=== PATIENT | female | born 1990 | race American Indian/Alaskan Native ===

== ENCOUNTER 2017-08-23 11:39 | Emergency (ER) | payer SELFPAY ==
[2017-08-23 12:20] VITALS: BP 113/76
== END 2017-08-23 17:20 | disposition left against medical advice (07) ==
LOC: ED 11:39
DX: R21 Rash and other nonspecific skin eruption (principal); Z53.21 Procedure and treatment not carried out due to patient leaving prior to being seen by health care provider